=== PATIENT | male | born 1985 | race Two or more races ===

== ENCOUNTER 2017-05-27 18:53 | Emergency (ER) | payer OTHER ==
[~2017-05-27] VITALS: Ht 182.9 cm; Wt 99.8 kg
[2017-05-27 19:43] LABS: Urine RBC None Seen /hpf (0 - 3)
[2017-05-27 20:21] LABS: Basophils # (auto) 0 uL; Basophils % (auto) 0.3 % (0.0-2.0); CONDITION Y; Eosinophils # (auto) 0.1 uL; Eosinophils % (auto) 1.4 % (0.0-7.0); Hematocrit 43.8 % (41.0-53.0); Hemoglobin 15.2 g/dL (13.5-17.5); Lymphocytes # (auto) 1.1 uL; Mean Corpuscular Hemoglobin 33.4 pg (28.0-32.0); Mean Corpuscular Hgb Conc. 34.6 g/dL (32.0-36.0); Mean Corpuscular Volume 96.6 fL (80.0-100.0); Mean Platelet Volume 10.7 fL (7.4-10.4); Monocytes # (auto) 0.5 uL; Monocytes % (auto) 8.3 % (0.0-12.0); Neutrophils # (auto) 4.2 uL; Platelet Count (auto) 169 10^3/uL (140-450); Red Cell Distribution Width 12.9 % (11.6-16.0); White Blood Cell 5.9 10^3/uL (4.4-10.8)
[2017-05-27 20:24] LABS: Urine Bilirubin Negative (Negative); Urine Blood Negative /uL (Negative); Urine Color Yellow (Yellow); Urine Glucose Normal (Normal); Urine Ketone Negative (Negative); Urine Mucus FEW (None Seen); Urine Nitrite Negative (Negative); Urine Urobilinogen Normal (Negative); Urine pH 5.5 (5.0-8.0)
[2017-05-27 20:52] LABS: Albumin 3.9 g/dL (3.4-5.0); BUN/Creatinine Ratio 19.4; Calcium 8.3 mg/dL (8.5-10.1); Potassium 3.9 mmol/L (3.5-5.1)
[2017-05-27 20:55] LABS: Bilirubin, Total 0.2 mg/dL (0.2-1.0); Total Protein 7.5 g/dL (6.4-8.2)
[2017-05-27] MEDS ORDERED: ONDANSETRON HCL 4 MG/2 ML VIAL IV ONE (21:30)
[2017-05-27] MEDS ORDERED: LORazepam 2MG/ML-1ML VIAL IV ONE (21:30)
[2017-05-27] MEDS ORDERED: HYDROmorphone HCL 2 MG/ML VL IV ONE (21:30)
[2017-05-28 00:14] VITALS: BP 123/75
[2017-05-28] MEDS ORDERED: HYDROmorphone HCL 2 MG/ML VL ONE (00:24)
[2017-05-28] MEDS ORDERED: HYDROmorphone HCL 2 MG/ML VL IV ONE (00:30)
== END 2017-05-28 00:26 | disposition short-term general hospital (02) ==
LOC: EDBD 18:53 → ER 18:58
DX: T18.9XXA Foreign body of alimentary tract, part unspecified, initial encounter (principal); F32.9 Major depressive disorder, single episode, unspecified; F20.9 Schizophrenia, unspecified; F17.210 Nicotine dependence, cigarettes, uncomplicated; F15.10 Other stimulant abuse, uncomplicated; R45.851 Suicidal ideations; Z79.899 Other long term (current) drug therapy; X58.XXXA Exposure to other specified factors, initial encounter; Y93.89 Activity, other specified; Y92.89 Other specified places as the place of occurrence of the external cause; Y99.8 Other external cause status
CPT/HCPCS: 36415; 74176; 80053; 80307; 80320; 80329; 81001; 85025; 93005; 96374; 96375; 96376; 99285; J1170; J2060; J2405

== ENCOUNTER 2024-03-20 22:17 | Emergency (ER) | payer OTHER ==
[~2024-03-20] VITALS: Ht 182.9 cm; Wt 135.2 kg
[2024-03-20 23:27] LABS: Urine Bacteria None Seen /hpf (None Seen)
[2024-03-20 23:35] LABS: Urine Blood Negative /uL (Negative); Urine Clarity Clear (Clear); Urine Color Light-Yellow (Yellow); Urine Mucus FEW (None Seen); Urine Protein, UAD Negative (Negative); Urine Specific Gravity 1.014 (1.001-1.035); Urine Urobilinogen Normal (Negative); Urine WBC 1 /hpf (0 - 3)
[2024-03-21] MEDS: SODIUM CHLORIDE 0.9% 500 ML IVB ONE (07:40)
[2024-03-21] MEDS: KETOROLAC TROMETH 30 MG/ML 1ML VIAL IV ONE (07:40)
[2024-03-21 07:48] LABS: Basophils # (auto) 0.1 10 ^3/uL (0-0.2); Basophils % (auto) 0.7 % (0.0-2.0); Eosinophils # (auto) 0.2 10 ^3/uL (0-0.8); Hematocrit 49.4 % (41.0-53.0); Hemoglobin 17.4 g/dL (13.5-17.5); Mean Corpuscular Hemoglobin 34.7 pg (28.0-32.0); Mean Corpuscular Hgb Conc. 35.2 g/dL (32.0-36.0); Mean Corpuscular Volume 98.6 fL (80.0-100.0); Monocytes # (auto) 0.5 10 ^3/uL (0-1.3); Neutrophils # (auto) 4.2 10 ^3/uL (1.6-8.6); Neutrophils % (auto) 60.3 % (37.0-80.0); Nucleated Red Blood Cells % 0.2 %; Red Blood Cells 5.01 10^6/uL (4.5-5.90); Red Cell Distribution Width 12.9 % (11.8-14.3)
[2024-03-21 08:05] VITALS: PULSE 86; RESP 16; O2SAT 95
[2024-03-21 08:06] LABS: Alanine Aminotransferase 94 U/L (7-40); Albumin 4.8 g/dL (3.2-4.8); Alkaline Phosphatase 71 U/L (46-116); Aspartate Aminotransferase 53 U/L (13-40); BUN/Creatinine Ratio 7.5 (10.0-20.0); Bilirubin, Total 0.9 mg/dL (0.2-1.0); Blood Urea Nitrogen 7 mg/dL (9-23); Chloride 103 mmol/L (98-107); Glucose 106 mg/dL (74-106); Magnesium 2.1 mg/dL (1.6-2.6); Potassium 4.1 mmol/L (3.5-5.1); Sodium 137 mmol/L (136-145); Total Protein 8.1 g/dL (5.7-8.2)
[2024-03-21] MEDS: SODIUM CHLORIDE 0.9% 1,000 ML IV ONE (08:38)
[2024-03-21 08:42] LABS: Anion Gap 7 (5-15); Carbon Dioxide 27 mmol/L (20-30)
[2024-03-21 08:48] LABS: Lipase 53 U/L (12-53)
[2024-03-21] MEDS ORDERED: DICL50TA2 PO (09:40)
[2024-03-21] MEDS ORDERED: CYCL-839 PO (09:40)
[2024-03-21 10:34] VITALS: BP 137/81; PULSE 75; RESP 16; TEMP 97.6; O2SAT 95
== END 2024-03-21 11:02 | disposition home or self-care (01) ==
LOC: ER 22:17
DX: M62.830 Muscle spasm of back (principal); F32.9 Major depressive disorder, single episode, unspecified; R74.8 Abnormal levels of other serum enzymes; F10.20 Alcohol dependence, uncomplicated; F20.9 Schizophrenia, unspecified; F17.210 Nicotine dependence, cigarettes, uncomplicated; Y90.8 Blood alcohol level of 240 mg/100 ml or more
CPT/HCPCS: 36415; 74176; 80053; 81001; 83690; 83735; 85025; 96361; 96374; 99285; J1885; J7030; J7040

== ENCOUNTER 2024-03-23 10:02 | Emergency (ER) | payer OTHER ==
[~2024-03-23] VITALS: Ht 182.9 cm; Wt 138.4 kg
[~2024-03-23 10:02] MED LIST: CYCL-839 PO; DICL50TA2 PO
[2024-03-23 10:56] LABS: Urine Bacteria None Seen /hpf (None Seen)
[2024-03-23 11:07] LABS: Urine Blood Negative /uL (Negative); Urine Clarity Clear (Clear); Urine Color Yellow (Yellow); Urine Mucus FEW (None Seen); Urine Protein, UAD TRACE (Negative); Urine Specific Gravity 1.023 (1.001-1.035); Urine Urobilinogen Normal (Negative); Urine WBC 2 /hpf (0 - 3); Urine pH 5.5 (5.0-9.0)
[2024-03-23 11:10] LABS: Basophils # (auto) 0 10 ^3/uL (0-0.2); Eosinophils # (auto) 0.2 10 ^3/uL (0-0.8); Hemoglobin 16.4 g/dL (13.5-17.5); Monocytes # (auto) 0.4 10 ^3/uL (0-1.3); Nucleated Red Blood Cells % 0.1 %
[2024-03-23] MEDS: IOHEXOL 300 MG/ML 100ML BOTTLE IJ ONE ×2 (11:11→12:28)
[2024-03-23 11:13] LABS: Basophils % (auto) 0.8 % (0.0-2.0); Eosinophils % (auto) 2.7 % (0.0-7.0); Hematocrit 46.7 % (41.0-53.0); Lymphocytes # (auto) 1.9 10 ^3/uL (0.4-5.4); Mean Corpuscular Hemoglobin 34.8 pg (28.0-32.0); Mean Corpuscular Hgb Conc. 35.1 g/dL (32.0-36.0); Mean Corpuscular Volume 99.3 fL (80.0-100.0); Monocytes % (auto) 7.9 % (0.0-12.0); Neutrophils % (auto) 54.6 % (37.0-80.0); Red Cell Distribution Width 12.8 % (11.8-14.3); White Blood Cell 5.5 10^3/uL (4.4-10.8)
[2024-03-23 11:32] LABS: Alanine Aminotransferase 84 U/L (7-40); Albumin 4.5 g/dL (3.2-4.8); Alkaline Phosphatase 62 U/L (46-116); Anion Gap 4 (5-15); Aspartate Aminotransferase 45 U/L (13-40); BUN/Creatinine Ratio 11.3 (10.0-20.0); Bilirubin, Total 0.6 mg/dL (0.2-1.0); Blood Urea Nitrogen 11 mg/dL (9-23); Calcium 9.7 mg/dL (8.5-10.1); Carbon Dioxide 29 mmol/L (20-30); Chloride 105 mmol/L (98-107); Glucose 91 mg/dL (74-106); Potassium 3.9 mmol/L (3.5-5.1); Sodium 138 mmol/L (136-145)
[2024-03-23 12:11] LABS: Lipase 33 U/L (12-53)
[2024-03-23 14:34] VITALS: BP 141/87; PULSE 82; RESP 17; TEMP 98.9; O2SAT 95
== END 2024-03-23 14:36 | disposition home or self-care (01) ==
LOC: ER 10:02
DX: R16.0 Hepatomegaly, not elsewhere classified (principal); F32.A Depression, unspecified; F20.9 Schizophrenia, unspecified; F17.210 Nicotine dependence, cigarettes, uncomplicated
CPT/HCPCS: 36415; 74177; 80053; 81001; 83605; 83690; 84484; 85025; 93005; 99285; Q9967

== ENCOUNTER 2024-04-12 11:24 | Emergency (ER) | payer OTHER ==
[~2024-04-12] VITALS: Ht 175.3 cm; Wt 100.0 kg
[2024-04-12 11:46] VITALS: PULSE 122; RESP 16; O2SAT 98
[2024-04-12 11:55] LABS: Basophils # (auto) 0 10 ^3/uL (0-0.2); Basophils % (auto) 0.6 % (0.0-2.0); Eosinophils # (auto) 0.1 10 ^3/uL (0-0.8); Eosinophils % (auto) 1.8 % (0.0-7.0); Hematocrit 45.9 % (41.0-53.0); Hemoglobin 16.1 g/dL (13.5-17.5); Lymphocytes # (auto) 1.1 10 ^3/uL (0.4-5.4); Mean Corpuscular Hemoglobin 34.4 pg (28.0-32.0); Mean Corpuscular Hgb Conc. 35.1 g/dL (32.0-36.0); Mean Corpuscular Volume 98.1 fL (80.0-100.0); Monocytes # (auto) 0.3 10 ^3/uL (0-1.3); Monocytes % (auto) 9.1 % (0.0-12.0); Neutrophils # (auto) 2.3 10 ^3/uL (1.6-8.6); Neutrophils % (auto) 60.5 % (37.0-80.0); Nucleated Red Blood Cells % 0.2 %; Red Blood Cells 4.68 10^6/uL (4.5-5.90); Red Cell Distribution Width 12.6 % (11.8-14.3); White Blood Cell 3.8 10^3/uL (4.4-10.8)
[2024-04-12 12:11] LABS: Acetaminophen < 2.0 UG/ML (10.0-20.0); Alanine Aminotransferase 35 U/L (7-40); Albumin 4.5 g/dL (3.2-4.8); Alkaline Phosphatase 60 U/L (46-116); Anion Gap 9 (5-15); Aspartate Aminotransferase 21 U/L (13-40); BUN/Creatinine Ratio 11.5 (10.0-20.0); Bilirubin, Total 0.4 mg/dL (0.2-1.0); Blood Urea Nitrogen 10 mg/dL (9-23); Calcium 9.8 mg/dL (8.7-10.4); Carbon Dioxide 23 mmol/L (20-30); Chloride 104 mmol/L (98-107); Glucose 134 mg/dL (74-106); Sodium 136 mmol/L (136-145)
[2024-04-12 12:12] LABS: Salicylate < 3.0 mg/dL (2.8-20.0); Total Protein 7.1 g/dL (5.7-8.2)
[2024-04-12 13:31] LABS: Barbiturate Scree,Urine Neg (NEGATIVE)
[2024-04-12 13:32] LABS: Amphetamine Screen, Urine Neg (NEGATIVE); Cannabinoid Screen, Urine Neg (NEGATIVE); Cocaine Screen, Urine Neg (NEGATIVE); Opiate Scree,Urine Neg (NEGATIVE); Phencyclidine Screen, Urine Neg (NEGATIVE)
[2024-04-12 13:33] LABS: Benzodiazephine Screen, Urine Neg (NEGATIVE)
[2024-04-12 22:00] VITALS: PULSE 82; RESP 16; O2SAT 97
[2024-04-12] MEDS: QUEtiapine FUMARATE 25 MG TAB PO SCH (22:00)
[2024-04-13 07:55] VITALS: PULSE 102; RESP 18; O2SAT 93
[2024-04-13 10:33] VITALS: BP 146/92; PULSE 110; RESP 16; TEMP 97.6; O2SAT 95
== END 2024-04-13 11:56 | disposition short-term general hospital (02) ==
LOC: EDBD 11:24 → ER 11:30
DX: T14.91XA Suicide attempt, initial encounter (principal); T52.0X1A Toxic effect of petroleum products, accidental (unintentional), initial encounter; F17.210 Nicotine dependence, cigarettes, uncomplicated; F32.9 Major depressive disorder, single episode, unspecified; F20.9 Schizophrenia, unspecified; Z98.890 Other specified postprocedural states; X83.8XXA Intentional self-harm by other specified means, initial encounter; Y93.89 Activity, other specified; Y92.89 Other specified places as the place of occurrence of the external cause; Y99.8 Other external cause status
CPT/HCPCS: 36415; 80053; 80307; 80320; 80329; 85025

== ENCOUNTER 2025-05-24 18:08 | Emergency (ER) | payer MEDICAID, OTHER ==
[~2025-05-24] VITALS: Ht 182.9 cm; Wt 105.0 kg
--- NOTE | 2025-05-24 18:39 | ED.PDOC ---
History of Present Illness HPI Comments 40 y/o obese M, with a history of schizophrenia, presents with c/c suicidal and homicidal ideations and auditory hallucinations. Patient endorses on worsening frequency of hearing voices in his head that tell him to hurt himself, lately. Denial of any visual hallucinations, self harm or suicide attempt, or further associated symptoms. Chief Complaint: Suicidal Time Seen by MD: 18:15 Primary Care Provider: NONE Reviewed Notes: Nurses Notes, Medications, Allergies Allergies: Coded Allergies: NO KNOWN ALLERGIES (Unverified , 05/10/16) Home Meds Active Scripts Cyclobenzaprine Hcl (Cyclobenzaprine Hcl) 10 Mg Tab, 10 MG PO TID for 10 Days, #30 TAB Prov:ONESIMO EDMONDSON MD 03/21/24 Diclofenac Potassium (Diclofenac Potassium) 50 Mg Tab, 1 TAB PO TIDP PRN for 10 Days, #30 TAB Prov:ONESIMO EDMONDSON MD 03/21/24 Information Source: Patient Mode of Arrival: EMS Severity: Moderate Timing: Hours Duration: Since onset Prehospital treatment: None Past Medical History PAST MEDICAL HISTORY: Depression, Schizophrenia Family History Family History: Unobtainable Social History Smoker: Cigarettes Alcohol: Heavy Drugs: Denies Drug Use Lives In: Home All Other Systems: Reviewed and Negative (Comprehensive systems review obtained and negative except for what is stated in the HPI.) Physical Exam General Appearance: No Apparent Distress, Obese HEENT: Normal ENT Inspection, Pharynx Normal, TMs Normal Neck: Full Range of Motion, Non-Tender, Normal, Normal Inspection Respiratory: Chest Non-Tender, Lungs Clear, No Accessory Muscle Use, No Respiratory Distress, Normal Breath Sounds Cardiovascular: No Edema, No JVD, No Murmur, No Gallop, Normal Peripheral Pulses, Regular Rate/Rhythm Breast Exam: Deferred Gastrointestinal: No Organomegaly, Non Tender, No Pulsatile Mass, Normal Bowel Sounds, Soft Genitalia: Deferred Pelvic: Deferred Rectal: Deferred Extremities: No calf tenderness, Normal capillary refill, Normal inspection, Normal range of motion, Non-tender, No pedal edema Musculoskeletal : Apperance: Normal Neurologic: Alert, payroll and benefits assistant II-XII nml as Tested, No Motor Deficits, Normal Affect, Normal Mood, No Sensory Deficits Cerebellar Function: Normal Reflexes: Normal Skin: Dry, Normal Color, Warm Lymphatic: No Adenopathy Was a procedure done? Was a procedure done?: No Differential Dx Considerations may include: schizoaffective disorder, depression, hopelessness, suicidal, among others X-Ray, Labs, Meds, VS Vital Signs Date Time Temp Pulse Resp B/P (MAP) Pulse Ox O2 Delivery O2 Flow Rate FiO2 05/25/25 12:23 78 16 95 Room Air* 0 21 05/25/25 12:23 98.1 78 16 118/64 (82) 95 98.1 05/24/25 18:10 97.8 105 20 140/87 96 97.8 05/24/25 18:10 97.8 105 20 140/87 (104) 96 97.8 Lab Test 05/24/25 18:33 05/24/25 18:30 Range/Units White Blood Count 6.5 4.4-10.8 10^3/uL Red Blood Count 5.10 4.5-5.90 10^6/uL Hemoglobin 17.6 H 13.5-17.5 g/dL Hematocrit 49.5 41.0-53.0 % Mean Corpuscular Volume 97.2 80.0-100.0 fL Mean Corpuscular Hemoglobin 34.6 H 28.0-32.0 pg Mean Corpuscular Hemoglobin Concent 35.6 32.0-36.0 g/dL Red Cell Distribution Width 12.9 11.8-14.3 % Platelet Count 167 140-450 10^3/uL Mean Platelet Volume 11.0 H 6.9-10.8 fL Neutrophils (%) (Auto) 52.6 37.0-80.0 % Lymphocytes (%) (Auto) 34.6 10.0-50.0 % Monocytes (%) (Auto) 8.7 0.0-12.0 % Eosinophils (%) (Auto) 3.3 0.0-7.0 % Basophils (%) (Auto) 0.8 0.0-2.0 % Neutrophils # (Auto) 3.4 1.6-8.6 10 ^3/uL Lymphocytes # (Auto) 2.2 0.4-5.4 10 ^3/uL Monocytes # (Auto) 0.6 0-1.3 10 ^3/uL Eosinophils # (Auto) 0.2 0-0.8 10 ^3/uL Basophils # (Auto) 0.1 0-0.2 10 ^3/uL Nucleated Red Blood Cells 0.1 % Sodium Level 141 136-145 mmol/L Potassium Level 4.0 3.5-5.1 mmol/L Chloride Level 104 98-107 mmol/L Carbon Dioxide Level 28 20-31 mmol/L Anion Gap 9 5-15 Blood Urea Nitrogen 11 9-23 mg/dL Creatinine 1.04 0.700-1.30 mg/dL Glomerular Filtration Rate Calc 94 >90 mL/min BUN/Creatinine Ratio 10.6 10.0-20.0 Serum Glucose 93 74-106 mg/dL Calcium Level 9.6 8.7-10.4 mg/dL Salicylates Level < 3.0 -30 mg/dL Acetaminophen Level < 2.0 L 10.0-20.0 UG/ML Plasma/Serum Blood Alcohol < 3.0 <10 mg/dL Urine Color Yellow Yellow Urine Clarity Clear Clear Urine pH 6.0 5.0-9.0 Urine Specific [place] 1.027 1.001-1.035 Urine Protein Trace H Negative Urine Ketones Negative Negative Urine Blood Negative Negative /uL Urine Nitrite Negative Negative Urine Bilirubin Negative Negative Urine Urobilinogen 8 H Negative mg/dL Urine Leukocyte Esterase Trace Negative /uL Urine RBC 1 0 - 3 /hpf Urine Microscopic WBC 1 0-3 /HPF Urine Squamous Epithelial Cells Few <5 /hpf Urine Bacteria None seen None Seen /hpf Urine Mucus Few None Seen Urine Glucose Normal Normal mg/dL Urine Opiates Screen Neg NEGATIVE Urine Fentanyl Screen Neg NEGATIVE Urine Barbiturates Screen Neg NEGATIVE Urine Phencyclidine Screen Neg NEGATIVE Urine Amphetamines Screen Neg NEGATIVE Urine Benzodiazepines Screen Neg NEGATIVE Urine Cocaine Screen Neg NEGATIVE Urine Cannabinoids Screen Neg NEGATIVE Time of 1ST Reevaluation: 18:45 Reevaluation 1ST: Unchanged Patient Education/Counseling: Diagnosis, Treatment, Need For Follow Up Family Education/Counseling: No Family Present SEPSIS Sepsis Screen Date sepsis recognized/suspect: May 24, 2025 Time Sepsis recognized/suspect: 1821 Recent Procedure: No On Antibiotic Therapy: No Respiratory Rate >20: No Heart Rate >90: Yes Temp<36 C (96.8 F) or >38.3 C: No SBP <90 or MAP <65 mmHG: No New Acute Mental Status Change: No Is the patient on CPAP, BIPAP,: No Physician Orders Soc Telemed Psych Consult (05/24/25 18:25) * Plate Finisher Consult (05/25/25 ) Vital Signs Date Time Temp Pulse Resp B/P (MAP) Pulse Ox O2 Delivery O2 Flow Rate FiO2 05/25/25 12:23 78 16 95 Room Air* 0 21 05/25/25 12:23 98.1 78 16 118/64 (82) 95 98.1 05/24/25 18:10 97.8 105 20 140/87 96 97.8 05/24/25 18:10 97.8 105 20 140/87 (104) 96 97.8 Laboratory Tests Test 05/24/25 18:33 White Blood Count 6.5 10^3/uL (4.4-10.8) Departure 1 Departure Time of Disposition: 06:29 (Patient presenting with suicide ideation. Was accepted as a voluntary transfer to [facility].) Impression: Primary Impression: Suicide ideation Additional Impression: Psychosis Qualified Codes: F29 - Unspecified psychosis not due to a substance or known physiological condition [facility] Condition: Serious Critical Care Note Critical Care Time?: No Stability Stability form required: No Heart Score Heart Score: Heart Score Response (Comments) Value History N/A 0 EKG N/A 0 Age N/A 0 Risk Factors N/A 0 Troponin N/A 0 Total 0 I personally scribed for AMOL CAMPOVERDE MD ([email or web address]) on 05/24/25 at 18:39. Electronically submitted by Bryan Bai [email or web address]). AMOL CAMPOVERDE MD May 24, 2025 18:39
[2025-05-24 18:53] LABS: Nucleated Red Blood Cells % 0.1 %
[2025-05-24 18:55] LABS: Hematocrit 49.5 % (41.0-53.0); Hemoglobin 17.6 g/dL (13.5-17.5); Mean Corpuscular Hemoglobin 34.6 pg (28.0-32.0); Mean Corpuscular Volume 97.2 fL (80.0-100.0)
[2025-05-24 19:02] LABS: Chloride 104 mmol/L (98-107); Potassium 4.0 mmol/L (3.5-5.1); Sodium 141 mmol/L (136-145)
[2025-05-24 19:03] LABS: Anion Gap 9 (5-15); Calcium 9.6 mg/dL (8.7-10.4); Carbon Dioxide 28 mmol/L (20-31)
[2025-05-24 19:08] LABS: BUN/Creatinine Ratio 10.6 (10.0-20.0); Blood Urea Nitrogen 11 mg/dL (9-23); Glucose 93 mg/dL (74-106)
[2025-05-24 19:17] LABS: Amphetamine Screen, Urine Neg (NEGATIVE); Barbiturate Scree,Urine Neg (NEGATIVE); Benzodiazephine Screen, Urine Neg (NEGATIVE); Cannabinoid Screen, Urine Neg (NEGATIVE); Cocaine Screen, Urine Neg (NEGATIVE); Opiate Scree,Urine Neg (NEGATIVE); Phencyclidine Screen, Urine Neg (NEGATIVE); Urine Protein, UAD TRACE (Negative)
[2025-05-24 19:18] LABS: Acetaminophen < 2.0 UG/ML (10.0-20.0); Salicylate < 3.0 mg/dL (-30)
--- NOTE | 2025-05-24 22:02 | DVHINCON2 ---
Date of Service if different f: May 24, 2025 Time of Service: 21:29 Consultation ([facility]) Consulting Physician: MINESH RIDDLE MD Labs Laboratory Tests Test 05/24/25 18:30 05/24/25 18:33 Urine Color Yellow (Yellow) Urine Clarity Clear (Clear) Urine pH 6.0 (5.0-9.0) Urine Specific [place] 1.027 (1.001-1.035) Urine Protein Trace (Negative) Urine Ketones Negative (Negative) Urine Blood Negative /uL (Negative) Urine Nitrite Negative (Negative) Urine Bilirubin Negative (Negative) Urine Urobilinogen 8 mg/dL (Negative) Urine Leukocyte Esterase Trace /uL (Negative) Urine RBC 1 /hpf (0 - 3) Urine Microscopic WBC 1 /HPF (0-3) Urine Squamous Epithelial Cells Few /hpf (<5) Urine Bacteria None seen /hpf (None Seen) Urine Mucus Few (None Seen) Urine Glucose Normal mg/dL (Normal) Urine Opiates Screen Neg (NEGATIVE) Urine Fentanyl Screen Neg (NEGATIVE) Urine Barbiturates Screen Neg (NEGATIVE) Urine Phencyclidine Screen Neg (NEGATIVE) Urine Amphetamines Screen Neg (NEGATIVE) Urine Benzodiazepines Screen Neg (NEGATIVE) Urine Cocaine Screen Neg (NEGATIVE) Urine Cannabinoids Screen Neg (NEGATIVE) White Blood Count 6.5 10^3/uL (4.4-10.8) Red Blood Count 5.10 10^6/uL (4.5-5.90) Hemoglobin 17.6 g/dL (13.5-17.5) Hematocrit 49.5 % (41.0-53.0) Mean Corpuscular Volume 97.2 fL (80.0-100.0) Mean Corpuscular Hemoglobin 34.6 pg (28.0-32.0) Mean Corpuscular Hemoglobin Concent 35.6 g/dL (32.0-36.0) Red Cell Distribution Width 12.9 % (11.8-14.3) Platelet Count 167 10^3/uL (140-450) Mean Platelet Volume 11.0 fL (6.9-10.8) Neutrophils (%) (Auto) 52.6 % (37.0-80.0) Lymphocytes (%) (Auto) 34.6 % (10.0-50.0) Monocytes (%) (Auto) 8.7 % (0.0-12.0) Eosinophils (%) (Auto) 3.3 % (0.0-7.0) Basophils (%) (Auto) 0.8 % (0.0-2.0) Neutrophils # (Auto) 3.4 10 ^3/uL (1.6-8.6) Lymphocytes # (Auto) 2.2 10 ^3/uL (0.4-5.4) Monocytes # (Auto) 0.6 10 ^3/uL (0-1.3) Eosinophils # (Auto) 0.2 10 ^3/uL (0-0.8) Basophils # (Auto) 0.1 10 ^3/uL (0-0.2) Nucleated Red Blood Cells 0.1 % Sodium Level 141 mmol/L (136-145) Potassium Level 4.0 mmol/L (3.5-5.1) Chloride Level 104 mmol/L (98-107) Carbon Dioxide Level 28 mmol/L (20-31) Anion Gap 9 (5-15) Blood Urea Nitrogen 11 mg/dL (9-23) Creatinine 1.04 mg/dL (0.700-1.30) Glomerular Filtration Rate Calc 94 mL/min (>90) BUN/Creatinine Ratio 10.6 (10.0-20.0) Serum Glucose 93 mg/dL (74-106) Calcium Level 9.6 mg/dL (8.7-10.4) Salicylates Level < 3.0 mg/dL (-30) Acetaminophen Level < 2.0 UG/ML (10.0-20.0) Plasma/Serum Blood Alcohol < 3.0 mg/dL (<10) Appearance: Stated age Psychomotor activity: WNL Behavioral: Cooperative Eye contact: Appropriate Speech: WNL Affect: Labile Mood: Depressed, Dysphoric Thought processes: Linear/Goal-directed Thought content: Hallucinations Suicidal ideations: Present Orientation: Person, Place, Time, Situation Memory intact: Recent Intellect: Average Abstractability: WNL Concentration: Adequate Attention: Adequate Judgement: Poor Insight: Fair Vitals Vital Signs Date Time Temp Pulse Resp B/P (MAP) Pulse Ox O2 Delivery O2 Flow Rate FiO2 05/24/25 18:10 97.8 105 20 140/87 96 97.8 Treatment plan discussed: With staff Medication adjusted: Yes Labs ordered: No Psychotherapy provided: No Type: Voluntary History of Present Illness Reason for Consult : psychiatric evaluation PER ED PHYSICIAN NOTE:40 y/o obese M, with a history of schizophrenia, presents with c/c suicidal and homicidal ideations and auditory hallucinations. Patient endorses on worsening frequency of hearing voices in his head that tell him to hurt himself, lately. Denial of any visual hallucinations, self harm or suicide attempt, or further associated symptoms. PSYCHIATRIST HPI: The patient was seen and evaluated at [facility] ED via telepsychiatry platform. 40 yr old male reported he had thoughts of harming himself today. He stated he hears voices which makes him feel unsafe. He noted his mood is often bad. He noted his sleep is disturbed. He reported his energy is often weak. He worries about things often. He stated he feels uncomfortable around other people and feels like his schizophrenia is getting out of control. He is concerned that he will harm himself or others if discharged from the hospital. He denied having suicidal or homicidal ideation, plan or intent. Past Psychiatric History : Diagnosed with schizophrenia. Hospitalized 3-4 times, Last in 2022 or . One suicide attempt by drinking gasoline. Medication trials on depakote and other meds. Past Medical History: Sleep apnea Current Medications: none NKDA Substance use: Denied use of alcohol and other substance use. Social History: Homeless in [place]. Never . Has one 13 yr old son who he has no contact with. Diagnosis: UNSPECIFIED PSYCHOTIC DISORDER F29 Formulation: This 40 yr old male appears to suffer from psychosis and has derogatory voices which make him want to kill himself. He is a moderate risk for self-harm and may benefit from admission to a behavioral health unit. He meets criteria for involuntary hold on basis of danger to self and agrees to voluntary transfer to behavioral health unit. Plan: 1. Transfer to behavioral health unit when medically cleared and bed available. 2. Legal-voluntary. If the patient is unable to be transferred due to no voluntary beds available, please place on hold for danger to self. 3. Medication: Recommend starting Abilify 10mg qhs Trazodone 50mg qhs prn insomnia. 4. Contact psychiatry if further evaluation or follow up is desired. 5. case discussed with ED physician, Dr. Horvath. Assessment/Diagnosis/Plan Reviewed: Labs, Previous Orders MINESH RIDDLE MD May 24, 2025 21:30
[2025-05-25 12:23] VITALS: BP 118/64; PULSE 78; RESP 16; TEMP 98.1; O2SAT 95
== END 2025-05-25 12:30 | disposition short-term general hospital (02) ==
LOC: EDBD 18:08 → EDUNIT# 18:08 → ER 18:08
DX: R45.851 Suicidal ideations (principal); F29 Unspecified psychosis not due to a substance or known physiological condition; F17.210 Nicotine dependence, cigarettes, uncomplicated; F20.9 Schizophrenia, unspecified; R45.850 Homicidal ideations; Z00.8 Encounter for other general examination; Z79.899 Other long term (current) drug therapy
CPT/HCPCS: 36415; 80048; 80307; 80320; 80329; 81001; 85025